=== PATIENT | male | born 1950 | race Caucasian/White ===

== ENCOUNTER 2017-11-17 10:58 | Outpatient (CLI) | payer OTHER ==
[2017-11-17] MEDS ORDERED: NALOXONE HCL 0.4 MG/ML INJ IVP PRN (11:15)
[2017-11-17] MEDS ORDERED: MIDAZOLAM 2 MG/2 ML VIAL IVP PRN (11:15)
[2017-11-17] MEDS ORDERED: MEPERIDINE 25 MG/ML SYR IVP PRN (11:15)
[2017-11-17] MEDS ORDERED: FLUMAZENIL 0.5 MG/5 ML MDV IVP PRN (11:15)
[2017-11-17] MEDS ORDERED: fentaNYL 100 MCG/2 ML INJ IVP PRN (11:15)
[2017-11-17] MEDS ORDERED: NS 1,000 ML IV SCH (11:15)
[2017-11-17] MEDS ORDERED: GADOBUTROL 10 ML VIAL IVP ONE (12:44)
[2017-11-17] MEDS ORDERED: ACETAMINOPHEN 325 MG TAB PO PRN (13:48)
[2017-11-17] MEDS ORDERED: ONDANSETRON 4 MG/2 ML VIAL IVP PRN (13:48)
[2017-11-17 14:21] VITALS: BP 116/71
== END 2017-11-17 14:32 | disposition home or self-care (01) ==
LOC: FIMAGING 10:58
PROVIDERS: ATTEND Physician Assistant Surgical
DX: G31.9 Degenerative disease of nervous system, unspecified (principal); G20 Parkinson's disease; F02.81 Dementia in other diseases classified elsewhere, unspecified severity, with behavioral disturbance
CPT/HCPCS: 70553; A9585; J2250; J3010

== ENCOUNTER 2017-11-24 05:32 | Inpatient (IN) | payer OTHER ==
[2017-11-24] MEDS ORDERED: CEFUROXIME 1,500 MG in STERILE WATER INJ 17 ML IV ONE (06:00)
[2017-11-24] MEDS ORDERED: LIDOCAINE 1% 2 ML INJ ID PRN (06:10)
[2017-11-24] MEDS ORDERED: LR 1,000 ML IV ONE (06:10)
[2017-11-24] MEDS ORDERED: LIDOCAINE 2% JELLY 20 ML (UROJECT) ONE (06:38)
[2017-11-24] MEDS ORDERED: GENTAMICIN SULFATE 80 MG/2 ML VIAL ONE (06:38)
[2017-11-24] MEDS ORDERED: THROMBIN (BOVINE) 20,000 UNIT VIAL TP ONE (06:38)
[2017-11-24] MEDS ORDERED: POVIDONE-IODINE 30 GM OINTTUBE TP ONE (06:39)
[2017-11-24] MEDS ORDERED: EPINEPHrine 1 MG/ML INJ ONE (06:39)
[2017-11-24] MEDS ORDERED: BUPIVACAINE 0.25% 30 ML SDV ONE (06:39)
[2017-11-24 06:48] LABS: PLATELET COUNT 185 10^3/uL (150-400)
[2017-11-24 06:56] LABS: INR 1.02 (0.83-1.16); PROTIME(PATIENT) 13.6 SEC (12.0-15.0)
--- NOTE | 2017-11-24 07:02 | PDANEPAE ---
ANE History of Present Illness dbs ANE Past Medical History - Cardiovascular History Hx Hypertension: Yes Hx Arrhythmias: Yes Hx Chest Pain: No Hx Coronary Artery / Peripheral Vascular Disease: Yes Hx CHF / Valvular Disease: No Hx Palpitations: No Cardiovascular History Comment: cardiomyopathy; two episodes of Afib - Pulmonary History Hx COPD: No Hx Asthma/Reactive Airway Disease: No Hx Recent Upper Respiratory Infection: No Hx Oxygen in Use at Home: No Hx Sleep Apnea: Yes Sleep Apnea Screening Result - Last Documented: Positive Pulmonary History Comment: UDAY - Neurologic History Hx Cerebrovascular Accident: No Hx Seizures: No Hx Dementia: No Neurologic History Comment: PERIODIC LIMB MOVEMENT DISORDER. ESSENTIAL TREMOR - Endocrine History Hx Diabetes: Yes Endocrine History Comment: type II diabetes - Renal History Hx Renal Disorders: Yes Renal History Comment: 1.9 creatinine for 15 years - Liver History Hx Hepatic Disorders: No - Neurological & Psychiatric Hx Hx Neurological and Psychiatric Disorders: Yes - Cancer History Hx Cancer: No - Congenital Disorder History Hx Congenital Disorders: No - GI History Hx Gastrointestinal Disorders: No - Chronic Pain History Chronic Pain: No - Surgical History Prior Surgeries: total L hip-titanium; hernia repair ANE Review of Systems Review of Systems: - Exercise capacity METS (RN): 4 METS ANE Patient History - Allergies Allergies/Adverse Reactions: amoxicillin Allergy (Verified 11/24/17 06:19) Rash - Home Medications Home Medications: Amiodarone HCl [Pacerone (*)] 11/02/17 [Last Taken 11/24/17 04:15] Carvedilol [Coreg (*)] 11/02/17 [Last Taken 11/23/17 19:30] Glimepiride [Amaryl 2 MG (*)] 11/02/17 [Last Taken 11/23/17 07:00] Hydrochlorothiazide [HCTZ (*)] 11/02/17 [Last Taken 11/23/17 07:00] Pravastatin Sodium 11/02/17 [Last Taken 11/23/17 19:30] Valsartan [Diovan (*)] 11/02/17 [Last Taken 11/24/17 04:15] metFORMIN HCL [Glucophage 500 mg (*)] 11/02/17 [Last Taken 11/03/17] - NPO status NPO Since - Liquids (Date): 11/24/17 NPO Since - Liquids (Time): 04:15 NPO Since - Solids (Date): 11/23/17 NPO Since - Solids (Time): 18:30 - Smoking Hx Smoking Status: Former smoker - Family Anes Hx Family Hx Anesthesia Complications: none ANE Labs/Vital Signs - Labs Result Diagrams: 11/24/17 06:38 11/24/17 06:38 - Vital Signs Blood Pressure: 160/99 Heart Rate: 62 Respiratory Rate: 16 O2 Sat (%): 96 Height: 166.37 cm Weight: 74.843 kg ANE Physical Exam - Airway Mallampati Score: Class 2 Mouth exam: normal dental/mouth exam - Pulmonary Pulmonary: no respiratory distress - Cardiovascular Cardiovascular: regular rate and rhythym - ASA Status ASA Status: II ANE Anesthesia Plan Anesthesia Plan: GA w LMA, MAC Lines/Monitors: arterial line
--- NOTE | 2017-11-24 07:05 | PDHPUP ---
History & Physical Update H&P update statement: This history and physical update is based on an assessment of the patient which was completed after admission or registration (within 24 hours), but prior to the surgery/procedure. H&P update: H&P reviewed & patient examined, no change in patient's condition since H&P completed
[2017-11-24] MEDS ORDERED: fentaNYL 100 MCG/2 ML INJ ONE (07:06)
[2017-11-24] MEDS ORDERED: PROPOFOL/EMULSION 500 MG/50 ML BOTTLE IV ONE (07:06)
[2017-11-24] MEDS ORDERED: niCARdipine/NACL/200 ML BAG IV ONE (07:07)
[2017-11-24] MEDS ORDERED: LABETALOL HCL 5 MG/ML 20 ML MDV ONE (07:11)
[2017-11-24] MEDS ORDERED: DEXAMETHASONE 4 MG/ML VIAL ONE ×3 (07:13)
[2017-11-24] MEDS ORDERED: ONDANSETRON 4 MG/2 ML VIAL ONE (07:13)
[2017-11-24] MEDS ORDERED: DEXMEDETOMIDINE HCL 400 MCG in NS 100 ML IV SCH (07:30)
[2017-11-24] MEDS ORDERED: PHENYLEPHRINE HCL 100 MCG/ML SYR IVP PRN (09:41)
[2017-11-24] MEDS ORDERED: ONDANSETRON 4 MG/2 ML VIAL IVP PRN ×2 (09:41→11:08)
[2017-11-24] MEDS ORDERED: fentaNYL 100 MCG/2 ML INJ IVP PRN (09:41)
[2017-11-24] MEDS ORDERED: NALOXONE HCL 0.4 MG/ML INJ IVP PRN (09:41)
[2017-11-24] MEDS ORDERED: ALBUTEROL 3 ML DEYVIAL IH PRN (09:41)
[2017-11-24] MEDS ORDERED: BISACODYL 10 MG SUPP PR PRN (11:08)
[2017-11-24] MEDS ORDERED: MAGNESIUM HYDROXIDE 30 ML UDCUP PO PRN (11:08)
[2017-11-24] MEDS ORDERED: ACETAMINOPHEN 325 MG TAB PO PRN (11:08)
[2017-11-24] MEDS ORDERED: LACTULOSE 20 GM/30 ML UDCUP PO PRN (11:08)
[2017-11-24] MEDS ORDERED: POLYETHYLENE GLYCOL 3350 17 GM PKT PO PRN (11:08)
--- NOTE | 2017-11-24 11:10 | POSTANESTH ---
Post Anesthetic Evaluation Cardiovascular Status: Normal, Stable Respiratory Status: Normal, Stable Level of Consciousness/Mental Status: Can Participate in Eval Pain Control: Adequate, Prn Tx Ordered Nausea/Vomiting Control: Adequate, Prn Tx Ordered Complications Possibly Related to Anesthesia: None Noted
[2017-11-24] MEDS ORDERED: HYDROCODONE/APAP 5/325 TAB PO PRN (11:11)
[2017-11-24] MEDS ORDERED: hydrALAZINE 20 MG/ML VIAL IVP PRN (11:11)
--- NOTE | 2017-11-24 11:14 | POSTOPPROG ---
Post Op Note Date of Operation: 11/24/17 Surgeon: Meggan Khan Passenger Train Braker: Maria Guadalupe Katz PA-C Anesthesia: IV Sedation Pre-op Diagnosis: Essential tremor Post-op Diagnosis: Essential tremor Procedure: Right VIM DBS lead placement Inf/Abcess present in the surg proc area at time of surgery?: No Depth: Superfical (Skin SQ) EBL: Minimal Plan Plan: 67 yo male s/p right VIM DBS lead placement for essential tremor - postop head CT pending - maintain SBP < 140 - pain control - advance diet as tolerated - plan for discharge tomorrow Exam Awake. Alert. PERRL. EOMI Facial expression symmetrical Muscle strength full at 5/5 Incision with dressing c/d/i
[2017-11-24] MEDS ORDERED: NS W/ 20 KCl/L 1,000 ML IV SCH (11:15)
--- NOTE | 2017-11-24 11:30 | GOP ---
[f rep st] OPERATIVE REPORT DATE OF OPERATION: 11/24/2017 SURGEON: Meggan Khan DO NEUROSURGEON: Meggan Khan DO LENS GENERATING MACHINE TENDER: KATY Reeves PREOPERATIVE DIAGNOSIS: Essential tremor. POSTOPERATIVE DIAGNOSIS: Essential tremor. PROCEDURE PERFORMED: 1. Right deep brain stimulator lead placement to ventral intermediate nucleus of the thalamus. 2. Stealth stereotaxis. 3. Impedance. FINDINGS: SPECIMENS: None. ESTIMATED BLOOD LOSS: 20 mL. INDICATIONS: This is a 67-year-old male, who has a benign essential tremor, who was found to be a go od candidate for deep brain stimulation. He elected to move forward with surgery. He was identified , consented. Sites were marked. Brought to the operating room, anesthetized under local with MAC. Hair was clipped with the OR clippers. Head was prepped with ChloraPrep and the incision sites for t he pins were anesthetized with 0.25% Marcaine with epinephrine. Using povidone iodine on the pin sit es, Leksell frame was placed stereotactically, and a stereotactic spin with the localizer box was per formed and merged to the Stealth frame link software preoperative plan. The ACPC distance was 24.54 mm, the entry point was an X of 34.86, a Y of 43, a Z of 62.84. The target was an X of 12.7, a Y of -6.32, and a Z of 0.05, corresponding to 19.4 degrees off midsagittal and 51.9 degrees off midaxial. This corresponded to Leksell frame coordinates of an X of 87.5, a Y of 95, a Z of 115.5, ring of 68, and arc of 76.1 degrees. He was prepped and draped in the usual sterile fashion, and these settings were all set and triple checked by all providers in the room. Incision site was marked and then a h fdc-garcia incision was anesthetized with 0.5% Marcaine with epinephrine. Incision was made with a 10 blade. Hemostasis was obtained with bipolar cautery, Kyaw clips, we elevated the periosteum with th e periosteal elevator. Marked the bone incision using Leksell frame coordinates and a cannula, perfo rmed a helicopter pilot hole, then a 14 mm bur hole was performed. The [employer] Stimloc device was vicky court and locked into place with 5 mm Synthes screws, the clips verified to clip and lock. We then ope raul the dura sharply with an 11 blade, coagulating the dura, and gently introduced a cannula and inte rnal stylet, placed Gelfoam and DuraSeal, and then placed a microelectrode. Performed microelectrode recording, and did not get good signals, and suspected that this was a microelectrode lead issue, so drove back up. Elected at this point to place a 2nd cannula into a centered and anterior tract, the Gel-Foam and DuraSeal was removed, a 2nd cannula was placed and sealed again with Gel-Foam and Dura Seal. The inner stylets were removed. The microelectrodes were performed, and microelectrode record ing was performed. KATY Reeves was my retail administrative assistant and was required to be an retail administrative assistant during t his case, as 1 provider is required to be un scrubbed performing microelectrode recording while the o ther is monitoring and manipulating the drive and the cannulas. The microelectrode recording was per formed, we got approximately 7-5 mm of VIM and got motor driving approximately 3 above target with so me deep, although no light tactile. We macro stemmed and had excellent control with low to no side e ffects. Elected to place the lead here with the bottom of the bottom contact 0.5 mm below target, wh ere we got out of VIM. We drove to this position, removed the microelectrode, placed the internal st ylet for the anterior cannula, measured and placed the lead in the center tract, tested each contact. All impedances were good. We had low to no side effects. Excellent stimulation effect. We electe d to leave the lead here, placed the bomb sites, took an x-ray with the bomb sites in place, then ret racted the cannula, placed the clipping mechanism, clipped and locked, and verified that it locked, m arked the lead, removed the internal stylette, brought the lead down and out using a bayonet, and vicky court it into the groove, placed the cap over the Stimloc device, placed the boot over the lead extensi on complex, placed the extension over, protecting each contact using the torque wrench, locked it sharon n. Brought the boot over the lead extension complex, tied in position with 2-0 silk ties at 2 positi ons, tunneled posteriorly with periosteal elevator, anesthetized the stab incision posteriorly with 0 .5% Marcaine with epinephrine. Made a stab incision with 11 blade. Tunneled posterior to anterior w ith the tunneler and brought the extension down and out, cutting it at the skin, coiling the lead pos terior and around the incision, took another x-ray, verified that it had not migrated. We also perfo rmed a stereotactic spin to verify lead location and had absolute complete accuracy of this lead. We then copiously irrigated with over a liter of gentamicin infused saline. Closed the galea with 2-0 Vicryl pop-offs. The skin was closed with 3-0 running nylon. Dressed with Xeroform and Telfa staple d down. The frame was removed and the head was wrapped. The patient tolerated procedure well. Ther e were no complications. DESCRIPTION OF PROCEDURE: FLUIDS: 800 mL of crystalloid. URINE OUTPUT: 250 mL. DRAINS: None. COMPLICATIONS: None. /[id number]/MODL
--- NOTE | 2017-11-24 11:40 | GPN ---
[f rep st] PROCEDURE NOTE DATE OF PROCEDURE: 11/24/2017 PREPROCEDURE DIAGNOSIS: Essential tremor. POSTPROCEDURE DIAGNOSIS: Essential tremor. PROCEDURE PERFORMED: Intraoperative functional subcortical mapping by microelectrode recording and stimulation. COMPLICATIONS: None. INDICATIONS FOR PROCEDURE: Determination of optimal electrode lead placement for deep brain stimulation therapy for essential tremor to the VIM. DESCRIPTION OF PROCEDURE: Following the incision, on the right a bur hole was drilled. The arc was then arranged with the following coordinates: X 87.5, Y 95.0, Z 115.5, ring 68, arc 76.1. The recording microelectrode was then slowly advanced into the brain using a central and anterior tract. The anterior tract had several cell bursts, however remained quiet overall. In the center tract, there were cell bursts at 10 above target. There was evidence of entering VIM approximately 7 above target, with possible change in stimulation with shoulder range of motion at 6.6 above target. There was evidence of change in recordings at 3.1 above target with shoulder range of motion, and with each deep touch to the shoulder at 2.36 above target. We exited VIM at 0.5 below target. We elected to proceed with macro stimulation at 3 above target, given the microelectrode recordings we received. The patient had improved tremor at 3.0 with transient tingling up to 4.0. We then placed the lead and proceeded with test stimulation. The bottom of the lead was placed at 0.5 below target. At 0- patient had transient tingling up to 3.5 with improved tremor, at 1- patient had transient tingling up to 3.5 with improved tremor, at 2- patient had no side effects with improved tremor, and at 3- patient had no side effects up to 3.5, and improved tremor. With this microelectrode recording, as well as test stimulation, we elected to place the lead in this location with the bottom of the lead at 0.5 below target. The patient tolerated the procedure well and was transferred to the recovery room. /[id number]/MODL MTDD
[2017-11-24] MEDS ORDERED: NS 1,000 ML IV SCH (12:00)
--- NOTE | 2017-11-24 12:43 | PDMN ---
Medical Necessity Medical necessity: [facility] IP only surgery; cpt 62072 Neurosurgery (Right Deep Brain Stimulator Lead Placement)
[2017-11-24] MEDS: CEFUROXIME 1,500 MG in STERILE WATER INJ 17 ML IV SCH ×2 (14:57→21:06)
[2017-11-24] MEDS: SENNOSIDES/DOCUSATE SODIUM TAB PO SCH (21:06)
[2017-11-25 08:02] VITALS: BP 135/77
[2017-11-25] MEDS: SENNOSIDES/DOCUSATE SODIUM TAB PO SCH (08:33)
--- NOTE | 2017-11-25 09:45 | NEUSURGPN ---
Assessment/Plan: Plan: 67 yo male s/p right VIM DBS lead placement for essential tremor - postop head CT shows good DBS lead placement without complication - Doing well this morning - pain control- fine on norco as needed - Head warp taken off and replaced today. layla removed. Will continue head wrap X 2 more days - plan for discharge later this morning -Discussed with Dr. Khan Exam Awake. Alert. PERRL. EOMI Facial expression symmetrical Muscle strength full at 5/5 Incision with dressing c/d/i Subjective: Doing well this am. Tremor improved. Pain well tolerated. Eager to go home. Neurosurgery Physical Exam - Vitals, I&O, Labs I and O 11/24/17 11/25/17 11/26/17 05:59 05:59 05:59 Intake Total 2250 100 Output Total 420 Balance 1830 100 Weight 74.843 kg 74.843 kg Intake: Oral (ml) 850 100 IV Intake (ml) 1400 Output: Urine (ml) 400 Catheter 400 Estimated Blood Loss (ml) 20 Other: Intake Quantity Yes Sufficient Number of Voids Toilet 3 Vital Signs Temp Pulse Resp BP Pulse Ox 36.6 C 65 16 135/77 H 93 11/25/17 08:01 11/25/17 08:01 11/25/17 08:01 11/25/17 08:01 11/25/17 08:01 Laboratory Results 11/24/17 06:38 11/24/17 06:38 ICD10 Worksheet Patient Problems: Problems Problem Status Onset Essential tremor Acute - ICD10 Problem Qualifiers (1) Essential tremor
--- NOTE | 2017-11-25 14:08 | GDS ---
[f rep st] DISCHARGE SUMMARY ADMITTING DIAGNOSIS: Essential tremor. DISCHARGE DIAGNOSIS: Essential tremor. PROCEDURE: Right VIM DBS lead placement. HOSPITAL COURSE: The patient is a 67-year-old male with essential tremor. He presented to the hospital to electively proceed with deep brain stimulation surgery for his left hand tremor. He underwent placement of a right DBS lead to the VIM by Dr. Meggan Khan on November 24 without any complications. Following surgery, his head CT was unremarkable for any acute hemorrhage. He was transferred to the floor for neurological checks and pain control. The following day, he was tolerating a diet, voiding without difficulty, pain controlled, and medically stable, and thus, he was deemed suitable for discharge. DISCHARGE INSTRUCTIONS: The patient was asked to follow up with Dr. Meggan Khan in 2 weeks for suture removal and wound check. He should avoid lifting more than 15 pounds and strenuous activity. DISCHARGE MEDICATIONS: The patient may resume home medications and can take Tylenol or Shirley as needed for pain relief. /[id number]/MODL MTDD
[2017-11-27] MEDS ORDERED: ENOXAPARIN 40 MG/0.4 ML SYR SC SCH (09:00)
== END 2017-11-25 12:37 | disposition home or self-care (01) | DRG 27 ==
LOC: F3E 05:32 → F3N 10:26
PROVIDERS: ADMIT Neurological Surgery; ATTEND Neurological Surgery
PROC: 00H03MZ Insertion of Neurostimulator Lead into Brain, Percutaneous Approach (ICD-10-PCS; principal; 2017-11-24 07:15)
PROC: 00K03ZZ Map Brain, Percutaneous Approach (ICD-10-PCS; principal; 2017-11-24 07:15)
DX: G25.0 Essential tremor (principal); I10 Essential (primary) hypertension; G47.33 Obstructive sleep apnea (adult) (pediatric); G47.61 Periodic limb movement disorder; E11.9 Type 2 diabetes mellitus without complications; Z96.642 Presence of left artificial hip joint
CPT/HCPCS: C1713; J0171; J0697; J1100; J1580; J2405; J2704; J3010

== ENCOUNTER 2017-12-22 06:27 | Day surgery (SDC) | payer OTHER ==
--- NOTE | 2017-11-17 12:44 | PDPROPOC ---
Sedation Plan of Care Sedation Plan of Care: vital signs stable, mental status noted, patient educated of risks, benefits, alternatives, patient can tolerate sedation ASA Classification: ASA 1 Planned drugs: fentanyl, midazolam Mallampati Score: Class 1 Mallampati Reference Image: Patient passed 3-3-2 rule?: Yes
--- NOTE | 2017-11-17 12:44 | PDRADPRE ---
Radiology History & Physical Home medications: Amiodarone HCl [Pacerone (*)] 200 mg PO DAILY 11/02/17 [Last Taken Unknown] Carvedilol [Coreg (*)] 6.25 mg PO BIDMEAL 11/02/17 [Last Taken Unknown] Glimepiride [Amaryl 2 MG (*)] 2 mg PO DAILY 11/02/17 [Last Taken Unknown] Herbals/Supplements -Info Only 1 ea PO DAILY 11/02/17 [Last Taken Unknown] Hydrochlorothiazide [HCTZ (*)] 25 mg PO DAILY 11/02/17 [Last Taken Unknown] Multivitamins [Multivitamin (*)] 1 each PO DAILY 11/02/17 [Last Taken Unknown] Pravastatin Sodium 40 mg PO HS 11/02/17 [Last Taken Unknown] Valsartan [Diovan (*)] 160 mg PO BID 11/02/17 [Last Taken Unknown] Vitamin B Complex [Vitamin B Complex (OTC)] 1 each PO DAILY 11/02/17 [Last Taken Unknown] metFORMIN HCL [Glucophage 500 mg (*)] 500 mg PO DAILY 11/02/17 [Last Taken Unknown] Allergies/Adverse Reactions: amoxicillin Allergy (Verified 11/05/17 15:25) Rash Mental status: A&Ox3 Heart exam: regular rate and rhythm Lungs exam: clear to auscultation Mallampati Score: Class 1
[2017-12-22] MEDS ORDERED: CHLORHEXIDINE GLUC HIBICLENS 118 ML BTL TP ONE (06:43)
[2017-12-22] MEDS ORDERED: BUPIVACAINE 0.25% 30 ML SDV ONE (06:44)
[2017-12-22] MEDS ORDERED: GENTAMICIN SULFATE 80 MG/2 ML VIAL ONE (06:44)
[2017-12-22] MEDS ORDERED: EPINEPHrine 1 MG/ML INJ ONE (06:44)
[2017-12-22] MEDS ORDERED: ACETAMINOPHEN 500 MG TAB PO ONE (07:17)
[2017-12-22] MEDS ORDERED: ceFAZolin 2 GM/DEXTROSE 100 ML IV ONE (07:17)
[2017-12-22] MEDS ORDERED: LR 1,000 ML IV ONE (07:20)
--- NOTE | 2017-12-22 08:16 | PDANEPAE ---
ANE History of Present Illness right dbs stage 2 ANE Past Medical History - Cardiovascular History Hx Hypertension: Yes Hx Arrhythmias: Yes Hx Chest Pain: No Hx Coronary Artery / Peripheral Vascular Disease: No Hx CHF / Valvular Disease: Yes Hx Palpitations: No Cardiovascular History Comment: Hx A fibnow sinus,pt denies any chest pain - Pulmonary History Hx COPD: No Hx Asthma/Reactive Airway Disease: No Hx Recent Upper Respiratory Infection: No Hx Oxygen in Use at Home: No Hx Sleep Apnea: Yes Sleep Apnea Screening Result - Last Documented: Positive Pulmonary History Comment: UDAY uses CPAP - Neurologic History Hx Cerebrovascular Accident: No Hx Seizures: No Hx Dementia: No Neurologic History Comment: PERIODIC LIMB MOVEMENT DISORDER. ESSENTIAL TREMOR - Endocrine History Hx Diabetes: Yes Endocrine History Comment: TYPE 2 NIDDM - Renal History Hx Renal Disorders: Yes Renal History Comment: 1.9 creatinine for 15 years - Liver History Hx Hepatic Disorders: No - Neurological & Psychiatric Hx Hx Neurological and Psychiatric Disorders: Yes Neurological / Psychiatric History Comment: ESSENTIAL TREMOR - Cancer History Hx Cancer: No - Congenital Disorder History Hx Congenital Disorders: No - GI History Hx Gastrointestinal Disorders: No - Other Health History Other Health History: none - Chronic Pain History Chronic Pain: No - Surgical History Prior Surgeries: brain stim stage 1 11/24. left hip replacement ANE Review of Systems Review of systems is: negative Review of Systems: - Exercise capacity Exercise capacity: >=4 METS METS (RN): 4 METS ANE Patient History - Allergies Allergies/Adverse Reactions: amoxicillin Allergy (Verified 11/24/17 06:19) Rash - Home Medications Home Medications: Amiodarone HCl [Pacerone (*)] 200 mg PO DAILY 11/02/17 [Last Taken 12/22/17] Carvedilol [Coreg (*)] 6.25 mg PO BID 11/02/17 [Last Taken 12/22/17] Glimepiride [Amaryl 2 MG (*)] 2 mg PO DAILY 11/02/17 [Last Taken 12/21/17] Hydrochlorothiazide [HCTZ (*)] 25 mg PO DAILY 11/02/17 [Last Taken 12/21/17] Pravastatin Sodium 40 mg PO DAILY 11/02/17 [Last Taken 12/22/17] Valsartan [Diovan (*)] 160 mg PO BID 11/02/17 [Last Taken 12/21/17] metFORMIN HCL [Glucophage 500 mg (*)] 500 mg PO DAILY 11/02/17 [Last Taken 12/21] Melatonin 12/08/17 [Last Taken 12/21/17] - NPO status NPO Status: no food or drink >8 hours NPO Since - Liquids (Date): 12/21/17 NPO Since - Liquids (Time): 21:00 NPO Since - Solids (Date): 12/21/17 NPO Since - Solids (Time): 20:00 - Anes Hx Anes Hx: no prior problems - Smoking Hx Smoking Status: Former smoker - Alcohol Use Alcohol Use: Occasionally (1-2/wk) - Family Anes Hx Family Anes Hx: none Family Hx Anesthesia Complications: none ANE Labs/Vital Signs - Vital Signs Blood Pressure: 159/99 Heart Rate: 64 Respiratory Rate: 18 O2 Sat (%): 95 Height: 167.64 cm Weight: 74.843 kg ANE Physical Exam - Airway Neck exam: FROM Mallampati Score: Class 2 Mouth exam: normal dental/mouth exam - Pulmonary Pulmonary: no respiratory distress - Cardiovascular Cardiovascular: regular rate and rhythym - ASA Status ASA Status: III ANE Anesthesia Plan Anesthesia Plan: general endotracheal anesthesia
[2017-12-22] MEDS ORDERED: ROCURONIUM 50 MG/5 ML VIAL ONE (08:27)
[2017-12-22] MEDS ORDERED: LIDOCAINE 2% 5 ML SDV ONE (08:27)
[2017-12-22] MEDS ORDERED: DEXAMETHASONE 4 MG/ML VIAL ONE (08:27)
[2017-12-22] MEDS ORDERED: ONDANSETRON 4 MG/2 ML VIAL ONE (08:27)
[2017-12-22] MEDS ORDERED: PROPOFOL 200 MG/20 ML VIAL ONE (08:28)
[2017-12-22] MEDS ORDERED: fentaNYL 100 MCG/2 ML INJ ONE ×2 (08:28→10:03)
[2017-12-22] MEDS ORDERED: ceFAZolin 1 GM VIAL ONE (09:05)
[2017-12-22] MEDS ORDERED: SUGAMMADEX SODIUM 200 MG/2 ML VIAL IVP ONE (09:07)
[2017-12-22] MEDS ORDERED: GLYCOPYRROLATE 0.2 MG/1 ML VIAL ONE (09:07)
[2017-12-22] MEDS: LIDOCAINE 1% 300 MG/30 ML SDV ONE ×2 (09:21→09:28)
[2017-12-22] MEDS ORDERED: ONDANSETRON DISINTEGRATING 4 MG TAB PO PRN (09:44)
[2017-12-22] MEDS ORDERED: HYDROCODONE/APAP 5/325 TAB PO PRN ×2 (09:44→09:52)
[2017-12-22] MEDS ORDERED: ACETAMINOPHEN 325 MG TAB PO PRN (09:45)
--- NOTE | 2017-12-22 09:45 | GOP ---
[f rep st] OPERATIVE REPORT DATE OF OPERATION: SURGEON: Meggan Khan DO NEUROSURGEON: Meggan Khan DO. GEOSPATIAL SYSTEMS INTEGRATOR: Maria Guadalupe Katz PA-C. PREOPERATIVE DIAGNOSIS: Essential tremor. POSTOPERATIVE DIAGNOSIS: Essential tremor. PROCEDURE PERFORMED: 1. Placement of right deep brain stimulator generator to right chest wall with Medtronic Activa SC. 2. Impedances. FINDINGS: SPECIMENS: None. ESTIMATED BLOOD LOSS: 20 mL. INDICATIONS: This is a 67-year-old male with benign essential tremor and a right VIM lead placement who returns for his generator placement. DESCRIPTION OF PROCEDURE: He was identified, consented. Sites were marked. Brought to the operatin g room, anesthetized under general endotracheal tube anesthesia. Hair was clipped with the OR clippe rs. Incision sites were marked. He was prepped and draped in the usual sterile fashion. Incision a t chest wall was anesthetized with 0.5% Marcaine with epinephrine. Incision was made with a 10 blade . Hemostasis was obtained with bipolar cautery. No Bovie was utilized. Decision was made at the ad with a 10 blade just lateral to lead extension complex, and it was dissected out with Metzenbaum s cissors. Meticulous hemostasis was obtained with bipolar cautery, then tunneled from the head down t o the chest wall in a single pass with Medtronic tunneler over the clavicle, bringing the extension w jah up and out. We cut the lead extension complex suture with an 11 blade, retracted the boot, using the torque wrench to protect each contact. Removed the extension and replaced the boot. Gently dri ed the lead, placed it into the new extension, locked into place with a torque wrench at all 4 contac ts. Brought the boot over the lead extension complex, tied in position with 2-0 silk ties at 2 posit ions, brought it flat against the skull, placed the extension into the generator, locked into place w ith a torque wrench. Coiled the wires posterior to the generator, checked impedances. All impedance s were good. Sutured the generator with 2 silk stitch at 2 positions. Copiously irrigated each inci guille with over a liter each of gentamicin infused saline. Closed the galea with 2-0 Vicryl pop-offs and the skin with 3-0 running nylon at the chest wall, closed the fascia with 2-0 Vicryl pop-offs, rich bcutaneous layer with 3-0 Vicryl pop-offs. The skin was closed with 4-0 running Monocryl and Dermabo nd. Head incision was dressed with Xeroform gauze and Medipore tape. Patient tolerated procedure we ll. No complications. FLUIDS: Per anesthesia record. URINE OUTPUT: None. DRAINS: None. COMPLICATIONS: None. /[id number]/MODL
[2017-12-22] MEDS ORDERED: DEXAMETHASONE 4 MG/ML VIAL IVP PRN (09:52)
[2017-12-22] MEDS ORDERED: ALBUTEROL 3 ML DEYVIAL IH PRN (09:52)
[2017-12-22] MEDS ORDERED: HYDROmorphONE/DILAUDID 1 MG/ML INJ IVP PRN (09:52)
[2017-12-22] MEDS ORDERED: ONDANSETRON 4 MG/2 ML VIAL IVP PRN (09:52)
[2017-12-22] MEDS ORDERED: LABETALOL HCL 5 MG/ML 20 ML MDV IVP PRN (09:52)
[2017-12-22] MEDS ORDERED: NALOXONE HCL 0.4 MG/ML INJ IVP PRN (09:52)
--- NOTE | 2017-12-22 10:01 | POSTOPPROG ---
Post Op Note Date of Operation: 12/22/17 Surgeon: Meggan Khan Concrete Batcher: Maria Guadalupe Katz PA-C Anesthesiologist: Dr. Zhou Anesthesia: GET(General Endotracheal) Pre-op Diagnosis: Essential tremor Post-op Diagnosis: Essential tremor Procedure: Right DBS generator implant Inf/Abcess present in the surg proc area at time of surgery?: No Depth: Superfical (Skin SQ) EBL: Minimal Plan Plan: 67 yo male s/p implant of right DBS generator - neuro checks - pain control - advance diet as tolerated - dc home today Exam Awake. Alert Following commands Incisions with dressings c/d/i
[2017-12-22] MEDS: fentaNYL 100 MCG/2 ML INJ IVP PRN ×2 (10:05→10:12)
[2017-12-22 11:53] VITALS: BP 122/79
== END 2017-12-22 11:50 | disposition home or self-care (01) ==
LOC: FSGY 06:27
PROVIDERS: ATTEND Neurological Surgery
PROC: 0JH60BZ Insertion of Single Array Stimulator Generator into Chest Subcutaneous Tissue and Fascia, Open Approach (ICD-10-PCS; principal; 2017-12-22 08:30)
DX: G25.0 Essential tremor (principal); G47.33 Obstructive sleep apnea (adult) (pediatric); I10 Essential (primary) hypertension; E11.9 Type 2 diabetes mellitus without complications; Z87.891 Personal history of nicotine dependence; Z96.642 Presence of left artificial hip joint; Z88.0 Allergy status to penicillin
CPT/HCPCS: C1767; C1787; C1883; J0171; J0690; J1100; J1580; J2405; J2704; J3010

== ENCOUNTER 2018-04-14 14:40 | Emergency (ER) | payer OTHER ==
--- NOTE | 2018-04-14 16:19 | EDPHY ---
H & P Time Seen by Provider: 04/14/18 16:07 HPI/ROS: CHIEF COMPLAINT: High blood pressure HISTORY OF PRESENT ILLNESS: History of hypertension was at [facility] and was sent here because of blood pressure 180/100 there. Patient has no symptoms. He is on carvedilol and hydrochlorothiazide and irbesartan. No recent changes in medications. He specifically denies headache or visual symptoms, any other neurologic symptoms, decrease in urination, chest pain or shortness of breath. He says he feels fine and was"pacing up and down the hallway" before he got into the room. REVIEW OF SYSTEMS: Eye: no change in vision ENT: no sore throat Cardiac: no chest pain or syncope Pulmonary: no cough or SOB Abdomen: no vomiting, diarrhea, abdominal pain Musculoskeletal: no back pain Skin: no rash Neuro: no headache, chronic resting tremor Constitutional: no fever : no urinary symptoms A comprehensive 10 point review of systems is otherwise negative aside from elements mentioned in the history of present illness. PAST MEDICAL HISTORY: Includes hypertension and diabetes and atrial fibrillation on Eliquis, deep brain stimulator placed for tremor Social history: Primary care is Dr. Pantera Blanca General Appearance: Alert and conversant, cooperative. Eyes: No scleral icterus. ENT, Mouth: Normal mucous membranes. Respiratory: Normal respiratory effort, breath sounds equal, lungs are clear to auscultation. Cardiovascular: Regular rate and rhythm. Gastrointestinal: Abdomen is soft and non tender. Neurological: Alert, face symmetric, normal motor and sensory in extremities. Speech is fluent, not ataxic., baseline tremor present. Skin: Warm and dry, no rashes. Musculoskeletal: No peripheral edema. Psychiatric: Not agitated. Emergency Department course/MDM: Patient blood pressure when I am in the room is 185/115. He is clearly asymptomatic. He does not appear by history and physical to have evidence of end-organ damage. I will discuss with his primary care physician. 12-lead EKG interpreted by me; official reading is in computer system. My interpretation is sinus rhythm with right bundle branch block and artifact from his brain stimulator. 1639: Discussed with Evangelist recommends increasing Coreg to 12.5mg by mouth twice a day, recheck next week. Smoking Status: Former smoker Constitutional: Initial Vital Signs Temperature (C) 36.9 C 04/14/18 14:46 Heart Rate 77 04/14/18 14:46 Respiratory Rate 18 04/14/18 14:46 Blood Pressure 196/122 H 04/14/18 14:46 O2 Sat (%) 97 04/14/18 14:46 O2 Delivery Mode Room Air Allergies/Adverse Reactions: amoxicillin Allergy (Verified 04/14/18 14:44) Rash Home Medications: Medication Instructions Recorded Amiodarone HCl [Pacerone (*)] 200 mg PO DAILY 11/02/17 Carvedilol [Coreg (*)] 6.25 mg PO BID 11/02/17 Glimepiride [Amaryl 2 MG (*)] 2 mg PO DAILY 11/02/17 Hydrochlorothiazide [HCTZ (*)] 25 mg PO DAILY 11/02/17 Pravastatin Sodium 40 mg PO DAILY 11/02/17 Valsartan [Diovan (*)] 160 mg PO BID 11/02/17 metFORMIN HCL [Glucophage 500 mg 500 mg PO DAILY 11/02/17 (*)] Melatonin 12/08/17 Departure - Departure Disposition: Home, Routine, Self-Care Clinical Impression: Hypertension Qualifiers: Hypertension type: unspecified Qualified Code(s): I10 - Essential (primary) hypertension Condition: Good Instructions: Hypertension (ED) Additional Instructions: Per Dr. Blanca increase carvedilol to 12.5 mg by mouth twice a day, follow-up with Dr. Blanca for blood pressure check next week. Referrals: Jose Blanca MD [Primary Care Provider] - As per Instructions
--- NOTE | 2018-04-14 16:19 | CPEKG ---
Test Reason : OPEN Blood Pressure : / mmHG Vent. Rate : 074 BPM Atrial Rate : 074 BPM P-R Int : 263 ms QRS Dur : 161 ms QT Int : 492 ms P-R-T Axes : 047 113 -35 degrees QTc Int : 546 ms Sinus rhythm Prolonged [place] interval Left atrial enlargement Right bundle branch block Borderline ST depression, lateral leads Confirmed by Vivek Platt ([id number]) on 04/14/2018 4:19:28 PM Referred By: Confirmed By:Vivek Platt
[2018-04-14 17:02] VITALS: BP 174/110
== END 2018-04-14 17:02 | disposition home or self-care (01) ==
DX: I10 Essential (primary) hypertension (principal); I45.10 Unspecified right bundle-branch block